=== PATIENT | female | born 1955 | race Caucasian/White ===

== ENCOUNTER 2020-12-05 12:04 | Emergency (ER) | payer MEDICARE ==
[~2020-12-05] VITALS: Ht 167.6 cm; Wt 105.7 kg
[2020-12-05 12:13] VITALS: BP 140/67
[2020-12-05] MEDS ORDERED: IBUP-1957 PO (13:11)
[2020-12-05] MEDS ORDERED: TRAM50TA2 PO (13:11)
--- NOTE | 2020-12-05 13:20 | NUR ---
R KNEE IMMOBILIZER IN PLACE. PATIENT A/OX4, BREATHING EVEN AND UNLABORED. NO SOB NOTED. Patient discharged to home in stable condition. Written and verbal after care instructions given. Patient verbalizes understanding of instruction.
== END 2020-12-05 13:22 | disposition home or self-care (01) ==
LOC: ER 12:17
DX: S86.811A Strain of other muscle(s) and tendon(s) at lower leg level, right leg, initial encounter (principal); I10 Essential (primary) hypertension; Z88.0 Allergy status to penicillin; Z88.2 Allergy status to sulfonamides; X50.1XXA Overexertion from prolonged static or awkward postures, initial encounter; Y93.89 Activity, other specified; Y92.813 Airplane as the place of occurrence of the external cause; Y99.8 Other external cause status
CPT/HCPCS: 73564-TC